=== PATIENT | male | born 1955 | race Two or more races ===

== ENCOUNTER → 2019-01-21 | Outpatient (CLI) | payer OTHER ==
--- NOTE | 2019-01-21 17:07 | KCIC ---
Examination: 2 views of the right shoulder HISTORY: History of fracture possibly lifting heavy box, fall COMPARISON: None available. FINDINGS: The humerus head is within the glenoid. Mild joint space loss identified in the glenohumeral joint, acromioclavicular joint. IMPRESSION: 1. No acute osseous findings. 2. Mild degenerative changes acromioclavicular joint, glenohumeral joint. Electronically signed by: Clyde Bustamante MD (01/21/2019 5:05 PM) [email or web address]
== END | disposition home or self-care (01) ==
LOC: KCIC 14:17
PROVIDERS: ATTEND Physician Assistant Medical
DX: S49.91XA Unspecified injury of right shoulder and upper arm, initial encounter (principal); M19.011 Primary osteoarthritis, right shoulder; W19.XXXA Unspecified fall, initial encounter; Y93.89 Activity, other specified; Y92.89 Other specified places as the place of occurrence of the external cause; Y99.8 Other external cause status
CPT/HCPCS: 73030

== ENCOUNTER → 2019-01-24 | Outpatient (CLI) | payer OTHER ==
--- NOTE | 2019-01-24 12:57 | KCIC ---
Examination: MRI of the right shoulder without contrast HISTORY: History of right shoulder pain COMPARISON: None available TECHNIQUE: Multiplanar, multisequence MR imaging of the right shoulder performed without contrast FINDINGS: The long head of the biceps tendon is not identified within the bicipital groove. There is full-thickness tear of the supraspinatus tendon with tendon retraction up to 2.7 cm medially with extension of fluid into the subacromial subdeltoid bursa. Some of the superior fibers of the subscapularis tendon may be torn. However majority of the subscapularis tendon appears intact. The infraspinatus tendon, teres minor tendon appears intact. There is moderate increased signal identified in the subscapularis, supraspinatus, infraspinatus tendon likely tendinosis. There is mild increased signal identified throughout the labrum likely degeneration. The muscle bulk grossly appears unremarkable. Mild degenerative changes acromioclavicular joint. Fat is present within the rotator interval. Moderate joint space loss identified in the glenohumeral joint, acromioclavicular joint. IMPRESSION: 1. Full-thickness tear of the anterior fibers of the supraspinatus tendon with tendon retraction. Some of the superior fibers of the subscapularis tendon may be torn. However majority of the subscapularis tendon appears intact. 2. Moderate rotator cuff tendinosis. 3. The long head of the biceps tendon is not evident within the bicipital groove. Electronically signed by: Clyde Bustamante MD (01/24/2019 12:54 PM) [id number]
== END | disposition home or self-care (01) ==
LOC: KCIC MRI 11:37
PROVIDERS: ATTEND Physician Assistant Medical
DX: M75.121 Complete rotator cuff tear or rupture of right shoulder, not specified as traumatic (principal); M19.011 Primary osteoarthritis, right shoulder
CPT/HCPCS: 73221

== ENCOUNTER → 2020-02-23 | Outpatient (CLI) | payer OTHER ==
--- NOTE | 2020-02-23 19:25 | KCIC ---
Examination: 1. Left elbow 2 views 2. Left forearm 2 views INDICATION: Left arm and elbow pain and bruising after falling 4 days ago full body weight on it FINDINGS: Left forearm shows no fracture or malalignment. There is subchondral cystic change in the distal radius and ulna with radiocarpal joint space narrowing compatible with degenerative changes. No acute soft tissue abnormality clearly demonstrated on forearm views. Left elbow however demonstrates findings suggesting an anterior fat pad sign of intra-articular joint space edema. There is suggestion of an avulsion fracture of the olecranon process enthesophyte with proximal retraction of 3.8 cm. There is overlying soft tissue edema. IMPRESSION: 1. Negative left forearm. 2. Avulsion fracture of an osteophyte at the olecranon process with probable joint effusion of the left elbow. Recommend correlation with MRI if clinically appropriate to assess triceps tendon integrity and for an otherwise occult fracture if present. Electronically signed by: Miguel Hand MD (02/23/2020 7:22 PM) [facility] [place]
== END | disposition home or self-care (01) ==
LOC: KCIC 12:59
PROVIDERS: ATTEND Internal Medicine
DX: S52.022A Displaced fracture of olecranon process without intraarticular extension of left ulna, initial encounter for closed fracture (principal); M19.032 Primary osteoarthritis, left wrist; M79.89 Other specified soft tissue disorders; W18.39XA Other fall on same level, initial encounter; Y93.89 Activity, other specified; Y92.89 Other specified places as the place of occurrence of the external cause; Y99.8 Other external cause status
CPT/HCPCS: 73070; 73090

== ENCOUNTER → 2020-03-03 | Outpatient (CLI) | payer OTHER ==
--- NOTE | 2020-03-03 16:24 | KCIC ---
EXAM: MRI LEFT ELBOW DATE: 03/03/2020 2:45 PM CLINICAL INDICATION: ELBOW FOR AVULSION FRACTURE AND JOINT EFFUSION. / Spl. Instructions: Pain and brusing about the upper and lower right arm. COMPARISON: 02/23/2020 TECHNIQUE: Multiplanar, multisequence MR imaging of the elbow was performed without IV contrast. FINDINGS: Left renal bursal fluid collection measures 4.3 x 0.6 cm. No elbow joint effusion. There is an avulsion fracture at the posterior olecranon with avulsion of the triceps tendon. Full-thickness, near full width tear of the common tendon attachment of the triceps tendon with retraction approximately 3.2 cm. Moderate associated soft tissue edema is seen. Anterior band of the medial collateral ligament is intact. Ulnar lateral collateral and lateral collateral ligaments intact. Epicondylar attachments for common extensor tendon and flexor pronator group within normal limits. Negative findings of tendinopathy, tendinitis or tear. Biceps tendon and brachialis tendons are intact with normal signal and morphology. No significant bicipitoradial bursal fluid. Forearm muscles groups are grossly normal in signal and morphology without fatty atrophy. Ulnar nerve is grossly intact although surrounded by edema from the dorsal elbow injury. Chondral thinning with subchondral edema and cystic change at the radial head. No fracture or osteonecrosis. IMPRESSION: 1. Full-thickness, subtotal width tear of the triceps tendon with retraction approximately 3.2 cm. 2. Marked associated soft tissue swelling and associated olecranon bursal collection. 3. Degenerative changes of the radiohumeral joint with subchondral edema and chondral thinning/fissuring radial head. Electronically signed by: Jalen Parikh MD (03/03/2020 4:21 PM) [id number]
== END ==
LOC: KCIC MRI 14:38
PROVIDERS: ATTEND Internal Medicine
DX: S46.312A Strain of muscle, fascia and tendon of triceps, left arm, initial encounter (principal); S50.12XA Contusion of left forearm, initial encounter; T14.8XXA Other injury of unspecified body region, initial encounter; M19.022 Primary osteoarthritis, left elbow; M77.9 Enthesopathy, unspecified; M25.422 Effusion, left elbow; X58.XXXA Exposure to other specified factors, initial encounter; Y93.89 Activity, other specified; Y92.89 Other specified places as the place of occurrence of the external cause; Y99.8 Other external cause status; M79.89 Other specified soft tissue disorders
CPT/HCPCS: 73221

== ENCOUNTER → 2020-10-11 | Outpatient (CLI) | payer OTHER ==
--- NOTE | 2020-10-11 13:11 | KCIC ---
L-spine 3 views INDICATION: Low back pain radiating down bilateral legs COMPARISON: No relevant comparisons currently available. TECHNIQUE: AP, lateral and coned-down lateral views of the lumbar spine were obtained in the upright position. FINDINGS: There are 5 lumbar type vertebrae. There is grade 1 anterolisthesis of L5 on S1 of approximately 6 mm. The lumbar spine is straightened in the lateral projection and shows rightward convexity scoliotic cu rvature, apex at L1-L2, in the AP projection. Minimal rightward lateral listhesis of L3 on L4 is also evident. The bones show preserved vertebral body heights but endplate sclerosis is present most conspicuously at L2-L3 and at L4-L5. No acute fracture is evident. No aggressive osseous lesions are seen. There is facet hypertrophic change throughout the lumbar spine, most conspicuously at L3-L4 through L 5-S1. Disc space narrowing is also present, most conspicuously on the left at L2-L3, L3-L4 and L4-L5. The listhesis at L5-S1 likely contributes to moderate to severe central canal stenosis, likely better evaluated with cross-sectional imaging (MRI or CT lumbar myelography). At least mild multilevel fora chante stenosis is also evident. The visualized sacroiliac joints and hips are unremarkable. The soft tissues show aortic calcificatio n. IMPRESSION: Multilevel lumbar spinal degenerative spondylosis with grade 1 anterolisthesis at L5-S1 that likely r esults in at least moderate central canal stenosis at the lumbosacral junction, better evaluated with cross-sectional technique as clinically warranted. Electronically signed by: Miguel Hand MD (10/11/2020 1:09 PM) [id number]
== END ==
LOC: KCIC 10:13
PROVIDERS: ATTEND Family Medicine
DX: M47.817 Spondylosis without myelopathy or radiculopathy, lumbosacral region (principal); M43.17 Spondylolisthesis, lumbosacral region
CPT/HCPCS: 72100

== ENCOUNTER → 2020-10-27 | Outpatient (CLI) | payer OTHER ==
--- NOTE | 2020-10-27 15:24 | KCIC ---
EXAMINATION: Magnetic resonance imaging (MRI) of the lumbar spine without contrast 10/27/2020 12:45 PM HISTORY: Right lower back pain and numbness for 3 months TECHNIQUE: Multiplanar multi-weighted MRI of the lumbar spine was performed without intravenous contr ast using the standard lumbar spine protocol. Contrast information: None administered. COMPARISON: None available. FINDINGS: There is 2 mm retrolisthesis of L2 on L3, 4 mm retrolisthesis of L3 on L4 and 2 mm retrolisthesis of L4 on L5 and L5 on S1. Conus medullaris terminates at L1. Distal spinal cord signal intensity is norm al in all sequences. There is moderate disc height loss at L2-3. Mild to L4 and L4-L5 with endplate i rregularity and Modic type I endplate changes, most significant at L3-L4 and L4-L5. There is congenit al narrowing of the spinal canal secondary to shortened pedicles. Epidural lipomatosis is identified at L4-L5 and L5-S1. There is moderate anterior marginal osteophytosis. Abdominal aorta is normal in c ourse and caliber. Visualized portions of the sacrum appear intact. No acute fracture is identified. L2-L3: There is a circumferential disc bulge with left lateral disc osteophyte complex. There is mild to moderate facet arthropathy. Moderate right and moderate to severe left neuroforaminal stenosis. I s left lateral recess stenosis. Mild spinal canal stenosis. L3-L4: There is a circumferential disc bulge with central disc extrusion. There is moderate right and mild left facet arthropathy. There is a right foraminal disc protrusion. Severe right and moderate l eft neural foraminal stenosis. Moderate to severe spinal canal stenosis, exacerbated by epidural lipo matosis. L4-L5: There is a large circumferential disc bulge with central disc protrusion. There is moderate fa cet arthropathy ligamentum flavum infolding. Bilateral lateral recess stenosis. Severe spinal canal s tenosis, exacerbated by epidural lipomatosis. L5-S1: There is a circumferential disc bulge. Mild to moderate facet arthropathy. Moderate bilateral neuroforaminal stenosis. Mild spinal canal stenosis, exacerbated by epidural lipomatosis. IMPRESSION: Moderate to advanced degenerative changes of lumbar spine, as described in detail above. Electronically signed by: Aury Guevara MD (10/27/2020 3:21 PM) [id number]
== END ==
LOC: KCIC MRI 12:31
PROVIDERS: ATTEND Family Medicine
DX: M47.817 Spondylosis without myelopathy or radiculopathy, lumbosacral region (principal); M43.17 Spondylolisthesis, lumbosacral region; M25.78 Osteophyte, vertebrae
CPT/HCPCS: 72148

== ENCOUNTER → 2020-11-22 | Outpatient (CLI) | payer OTHER ==
[~2020-11-22] MED LIST: ATOR20TA58 PO; DICL75TA PO; FISH400C4 PO; GABA300C18 PO; IOHEXOL 180 MG/ML 10 ML VIAL. ONE; LISI1TAB20 PO; MULT-245 PO; TURM500C4 PO; VIT59LIQ SL; [UNRECOGNIZED DRUG - CODE]; methylPREDNISolone ACETATE 40 MG/ML VIAL. ONE; methylPREDNISolone ACETATE 80 MG/ML VIAL. ONE
--- NOTE | 2020-11-22 13:05 | PDOC1 ---
INITIAL PAIN CONSULT DATE OF SERVICE: DOS: DATE: 11/22/20 TIME: 12:59 CHIEF COMPLAINT: Chief Complaint: Low back and right lower extremity pain HISTORY OF PRESENT ILLNESS: 65-year-old male presents with history of pain low back right lower extremity for about 6 months now patient reports no specific injury or accident that he is aware of is been getting worse with time standing walking changing positions exa cerbate the pain described in the low back rating right right lower extremity posterior gluteus posterior lateral thigh anterior thigh anteromedial thigh and medial calf patient reports is worse with walking standing sitting for prolonged periods driving in his truck getting in and out of the truck and standing still for prolonged periods greater than 10 to 15 minutes. Patient reports it is constant and stabbing in the back shooting in the right lower extremity with intermittent intensity with numbness and tingling in the leg as well as radiating to the right leg burning as well in the back and the leg patient reports no significant symptoms on the left side patient has done physical therapy in the past also is doing stretching strength exercises and is a e xercise bike and elliptical machine has been using at home which helps slightly but not significantly patient is taking gabapentin which is not sure is helping or not patient also taking [id number] Motrin which helps to a mild extent also patient rates his disability rating 0-10 10 being the worst is a 9 with family home responsibilities social activity occupation 10 with recreational activities 8 with sexual Haver 7 with self-care and several life support activities. Patient reports general is not awakening from sleep at night is not effective bowel bladder control but can affect his ability to walk is not use any assistive devices however to ambulate. Patient did have an MRI scan lumbar spine showing circumferential disc bulges with lateral disc osteophyte complexes L2-3 L3-4 and L4-5 with central disc extrusion at L3-4 with moderate right and mild left facet arthropathy right foraminal disc protrusion at L3-4 also bilateral severe canal stenosis and lateral recess stenosis at L4-5. PAST MEDICAL HISTORY: PMH: Hypertension, obesity, cigarette smoking quit 2016 PREVIOUS SURGERIES: Past Surgical Hx: Left elbow surgery, right rotator cuff repair CURRENT MEDICATIONS: Current Meds: Active Scripts Medications Dose Route/Sig Max Daily Dose Days Date Category Turmeric 500 mg Capsule (Turmeric/Turmeric Root Extract) 1 Each Capsule 1 Each PO DAILY 11/22/20 Reported B Complex Sublingual Liquid (Vit B2/Niacin/B-6/B-12/D-Panth) 59 Ml Liquid 1 Ml SL DAILY 30 11/22/20 Reported Multi Vitamin Daily (Multivitamin) 1 Each Tablet 1 Tab PO DAILY 30 11/22/20 Reported [glucosamine/msm] 1,500 DAILY 11/22/20 Reported [place] 3-6-9 Complex Softgel (Fish Oil/Borage/Flax/Om3,6,9#1) 400 Mg Capsule Unknown Dose PO DAILY 11/22/20 Reported Diclofenac Sodium 75 Mg Tablet.dr 75 Mg PO DAILY 11/22/20 Reported Lisinopril-Hctz 20-25 Mg Tab (Lisinopril/Hydrochlorothiazide) 1 Each Tablet 1 Tab PO DAILY 11/22/20 Reported Gabapentin (Gabapentin) 300 Mg Capsule 300 Mg PO TID 11/22/20 Reported Atorvastatin Calcium 20 Mg Tablet 1 Tab PO DAILY 11/22/20 Reported ALLERGIES; Allergies: Coded Allergies: No Known Drug Allergies (Unverified , 11/22/20) FAMILY HISTORY: Family Hx: Heart disease, diabetes SOCIAL HISTORY: Social Hx: Patient drinks alcohol occasionally but only rarely does not smoke quit 2017 does not use any illegal illicit or recreational drugs is lives with his spouse lives locally in [facility], 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 PHYSICAL EXAM: VS: Blood pressure is 146/82 pulse 80 respirations 18 temperature 98.5 F height is 5 feet 9 inches weight is 234 pounds PE: PHYSICAL EXAMINATION: GENERAL: The patient is awake, alert, oriented, appropriate, very pleasant demeanor HEENT: Shows normocephalic, atraumatic. Extraocular movements are intact and symmetrical. Patient wearing eyeglasses. Oral cavity: Mucous membranes moist and pink. Dentition is intact. NECK: Shows anterior throat supple without palpable lymphadenopathy noted. Swallow reflex symmetrical. CHEST: Shows normal on inspection. Breath sounds are clear bilaterally, no rales rhonchi wheezes auscultated. HEART: Shows S1, S2 clear. No murmurs auscultated. ABDOMEN: Soft, nontender, nondistended, obese. No palpable organomegaly is not ed. No rebound or guarding demonstrated. BACK: Shows spine grossly in the midline. Normal-appearing cervical lordotic curvature. There is slightly increased thoracic kyphosis, some minor flattening of the lumbar lordotic curvature. Lumbar paraspinous muscles show symmetrical on inspection, on palpation shows some moderate tenderness diffusely throughout the upper, middle and lower distribution of the paraspinous muscles bilaterally and also into the lower thoracic paraspinous musculature, firm and tender, but without specific trigger points, without radiation of pain. The patient has good rotational motion of the lumbar spine, both laterally as well as extension and flexion without significant difficulty. No tenderness over the spinous processes, sacrum or sacroiliac regions. EXTREMITIES: Lower extremities show deep tendon reflexes 2+ in the patellar and tendo calcaneus tendons. Motor exam is 4 on a scale of 5 with right dorsiflexion, extension, quadriceps and hamstring flexion and 5/5 on the left. Peripheral pulses are 1+ posterior tibial. No peripheral edema is noted bilaterally. Lower extremities are warm and dry to touch, equal in color and appearance. Straight leg raise noted to be positive on the right about 40 degrees, left side is negative. Gaenslen's and Efe's maneuvers are negative bilaterally as well. The patient is able to stand, stand on his toes without s ignificant difficulty or loss of balance walks with a slight favoring gait does appear to favor the right lower extremity mildly but not use any assistive devices to ambulate. SKIN: Shows warm and dry, good turgor. No edema. No sores, rashes or bruising throughout. IMPRESSION: Impression: 65-year-old male with approximate 6-month history increasing pain low back right lower extremity radicular fashion. MRI scan lumbar spine as noted Hypertension Obesity Plan: Options were discussed with the patient including surgeon recommended physical therapy interventional techniques. Patient like to pursue in terventional techniques. We discussed a lumbar epidural steroid injection using description as well as anatomical models described procedure. Risks were discussed including but not limited to: Bleeding, infection, possibility of epidural hematoma and subsequent neurological compromise, dural puncture, headaches, spinal cord and/or nerve damage, side effects of steroid medication, and poor results regarding pain control. Patient understands and wished to proceed. Patient return to the clinic in approximately 3 weeks for follow-up was counseled as return appointment activity level and side effects to be aware of. Procedure is lumbar epidural steroid injection under local anesthetic using sterile prep and drape at the L4-5 level using C-arm fluoroscopic guidance in both AP and lateral views medications injected is 120 mg Depo-Medrol + 10 mL preservative-free normal saline and 2 mL contrast- condition at discharge is stable patient tolerated procedure well had no complications. LUPIS OQUENDO MD Nov 22, 2020 13:05
== END | disposition home or self-care (01) ==
LOC: PNCL 11:51
PROVIDERS: ATTEND Anesthesiology
DX: M54.5 Low back pain (principal); M79.604 Pain in right leg; I10 Essential (primary) hypertension; E66.9 Obesity, unspecified; Z87.891 Personal history of nicotine dependence; Z98.890 Other specified postprocedural states; Z82.49 Family history of ischemic heart disease and other diseases of the circulatory system; Z83.3 Family history of diabetes mellitus; Z79.899 Other long term (current) drug therapy
CPT/HCPCS: 62323; J1030; J1040; Q9965

== ENCOUNTER → 2021-01-03 | Outpatient (CLI) | payer OTHER ==
--- NOTE | 2021-01-03 11:33 | PDOC4 ---
PROCEDURE Procedure Patient was consented for lumbar epidural steroid injection. Risks were dis cussed including but not limited to: Bleeding, infection, possibility of epidural hematoma and subsequent neurological compromise, dural puncture, headaches, spinal cord and/or nerve damage, side effects of steroid medication, and poor results regarding pain control. Patient understands and wished to proceed. Procedure is lumbar epidural steroid injection under local anesthetic using sterile prep and drape at the L4-5 level using C-arm fluoroscopic guidance in both AP and lateral views medications injected is 120 mg Depo-Medrol +10mL preservative-free normal saline and 2 mL contrast- condition at discharge is stable patient tolerated procedure well had no complications. LUPIS OQUENDO MD Jan 03, 2021 11:33
--- NOTE | 2021-01-03 11:33 | PDOC ---
Progress Note - Pain Clinic Date of Service: DOS: DATE: 01/03/21 TIME: 11:30 Diagnosis: Dx: Lumbar radiculopathy with lumbar degenerative disease lumbar spinal stenosis History or Present Illness: HPI: 65-year-old male returns follow-up status post lumbar epidural steroid traction x1. Patient reports he did very well for the first injection with about a 75% improvement initially now about 50% improvement but still doing better patient reports is in the low back right lower extremity beginning to become more noticeable over the past week or 2 patient reports for the first month it was doing excellent he was increasing his distance walking doing household activities work activities travel with greater ease and standing for longer periods as well. Patient reports still does not awaken from sleep at night worse with changing positions and standing mostly patient reports is a 7-8 on scale 10 is average worst and a 5 at its least is a 7 today patient reports aching and shooting tingling and stabbing in the back with radiating pain in the right lower extremity posterior gluteus lateral thigh anterior thigh medial thigh as well. Patient reports no new motor or sensory deficits no new bowel or bladder incontinence or other complaints. Physical Exam: VS: Blood pressure is 147/81 pulse 90 respirations 16 temperature 98.5 F weight is 233 pounds PE: PHYSICAL EXAMINATION: GENERAL: The patient is awake, alert, oriented, appropriate, very pleasant in demeanor. HEENT: Shows normocephalic, atraumatic. Extraocular movements are intact and symmetrical. Oral cavity: Mucous membranes moist and pink. Dentition is intact. NECK: Shows anterior throat supple without palpable lymphadenopathy noted. CHEST: Shows normal on inspection. Breath sounds are clear bilaterally, no rales or rhonchi or wheezes auscultated. HEART: Shows S1, S2 clear. No murmurs auscultated. ABDOMEN: Soft, nontender, nondistended, obese. No palpable organomegaly is noted. BACK: Shows spine grossly in the midline. Normal-appearing cervical lordotic curvature. There is slightly increased thoracic kyphosis, some minor flattening of the lumbar lordotic curvature. Lumbar paraspinous muscles show symmetrical on inspection, on palpation shows some moderate tenderness diffusely throughout the upper, middle and lower distribution of the paraspinous muscles, but without specific trigger points, without radiation of pain. The patient has good rotational motion of the lumbar spine, both laterally as well as extension and flexion without significant difficulty. EXTREMITIES: Lower extremities show deep tendon reflexes 2+ in the patellar and tendo calcaneus tendons. Motor exam is 4 on a scale of 5 with right dorsiflexion, extension, quadriceps and hamstring flexion and 5/5 on the left. Peripheral pulses are 1+ posterior tibial. No peripheral edema is noted bilaterally. Lower extremities are warm and dry to touch, equal in color and appearance. SKIN: Shows warm and dry, good turgor. No edema. No sores, rashes or bruising throughout. Procedure: Procedure: Options were discussed with the patient. Patient chart was reviewed his his current medication regimen updated current review of systems updated today as well. We will proceed with a second in the series lumbar epidural steroid injection today with fluoroscopic guidance. Risks were discussed including but not limited to: Bleeding, infection, possibility of epidural hematoma and subsequent neurological compromise, dural puncture, headaches, spinal cord and/or nerve damage, side effects of steroid medication, and poor results regarding pain control. Patient understands and wished to proceed. Patient will return to the clinic in approximately 2 weeks for follow-up, was counseled as return appointment activity level and side effects to be aware of. Medication Injected: Med Injected: Procedure is lumbar epidural steroid injection under local anesthetic using sterile prep and drape at the L4-5 level using C-arm fluoroscopic guidance in both AP and lateral views medications injected is 120 mg Depo-Medrol +10mL preservative-free normal saline and 2 mL contrast- condition at discharge is stable patient tolerated procedure well had no complications. Condition at Discharge: Condition at Discharge: Condition at discharge stable, patient tolerated the procedure well and had no complications. LUPIS OQUENDO MD Jan 03, 2021 11:33
== END | disposition home or self-care (01) ==
LOC: PNCL 10:44
PROVIDERS: ATTEND Anesthesiology
DX: M51.16 Intervertebral disc disorders with radiculopathy, lumbar region (principal); M48.061 Spinal stenosis, lumbar region without neurogenic claudication; Z79.899 Other long term (current) drug therapy
CPT/HCPCS: 62323; J1030; J1040; Q9965

== ENCOUNTER → 2021-02-18 | Outpatient (CLI) | payer OTHER ==
--- NOTE | 2021-02-18 09:19 | PDOC ---
Progress Note - Pain Clinic Date of Service: DOS: DATE: 02/18/21 TIME: 09:15 Diagnosis: Dx: Lumbar radiculopathy with lumbar degenerative disease and lumbar spinal stenosis History or Present Illness: HPI: 65-year-old male returns for follow-up status post lumbar epidural steroid x1. Patient reports about 90% improvement for the past 6 weeks and the pain began to return over the past week or so in the low back the right lower extremity posterior gluteus posterior lateral thigh lateral anterior thigh anteromedial thigh medial lower leg with walking and standing patient reports otherwise he been doing very well after the injection doing much greater walking distances, doing household activities work activities travel with greater ease and comfort, sleeping better at night as well. Patient reports the pain began to return over the past week or so rates as a 7 on scale 10 is worse over the past week 7 on average 3 displeasing is a 7 today patient scribes as aching and tingling in the right leg burning as well in the back and right hip. Patient reports no new motor or sensory deficits no bowel or bladder incontinence. Patient reports he has been supplementing new medication of Tylenol arthritis strength at night which does help him sleep if he can remember to take it as it does help him with activities and walking. Physical Exam: VS: Blood pressure is 132/79 pulse 73 respirations 18 temperature 98.6 F height is 5 foot 9 inches weight is 232 pounds PE: PHYSICAL EXAMINATION: GENERAL: The patient is awake, alert, oriented, appropriate, very pleasant in demeanor. HEENT: Shows normocephalic, atraumatic. Extraocular movements are intact and symmetrical. Oral cavity: Mucous membranes moist and pink. NECK: Shows anterior throat supple without palpable lymphadenopathy noted. Swallow reflex symmetrical. CHEST: Shows normal on inspection. Breath sounds are clear bilaterally. HEART: Shows S1, S2 clear. No murmurs auscultated. ABDOMEN: Soft, nontender, nondistended, obese. BACK: Shows spine grossly in the midline. Normal-appearing cervical lordotic curvature. There is slightly increased thoracic kyphosis, some minor flattening of the lumbar lordotic curvature. Lumbar paraspinous muscles show symmetrical on inspection, on palpation shows some moderate tenderness diffusely throughout the upper, middle and lower distribution of the paraspinous muscles, but without specific trigger points, without radiation of pain. The patient has good rotational motion of the lumbar spine, both laterally as well as extension and flexion without significant difficulty. EXTREMITIES: Lower extremities show deep tendon reflexes 2+ in the patellar and tendo calcaneus tendons. Motor exam is 4 on a scale of 5 with right dorsiflexion, extension, quadriceps and hamstring flexion and 5/5 on the left. Peripheral pulses are 1+ posterior tibial. No peripheral edema is noted bilat erally. Lower extremities are warm and dry to touch, equal in color and appearance. SKIN: Shows warm and dry, good turgor. No edema. No sores, rashes or bruising throughout. Procedure: Procedure: Options were discussed with the patient. Patient's old chart was reviewed his current medication regimen updated current review of systems updated today as well. We will proceed with a second in the series lumbar epidural steroid injection stable fluoroscopic guidance risks were discussed including but not limited to: Bleeding, infection, possibility of epidural hematoma and subsequent neurological compromise, dural puncture, headaches, spinal cord and/or nerve damage, side effects of steroid medication, and poor results regarding pain control. Patient understands and wished to proceed. Patient return to the clinic in approximate 2 weeks for follow-up, was counseled as return appointment activity level and side effects to be aware of. Medication Injected: Med Injected: Procedure is lumbar epidural steroid injection under local anesthetic using sterile prep and drape at the L4-5 level using C-arm fluoroscopic guidance in both AP and lateral views medications injected is 120 mg Depo-Medrol +10mL preservative-free normal saline and 2 mL contrast- condition at discharge is stable patient tolerated procedure well had no complications. Condition at Discharge: Condition at Discharge: Condition at discharge stable, patient tolerated the procedure well and had no complications. LUPIS OQUENDO MD Feb 18, 2021 09:19
--- NOTE | 2021-02-18 09:19 | PDOC4 ---
Procedure Note: ICD 10 Code: ICD 10 Code: M 54.16 M 48.07 M 51.36 Procedure Note: Patient was consented for lumbar epidural steroid injection. Risks were discussed including but not limited to: Bleeding, infection, possibility of epidural hematoma and subsequent neurological compromise, dural puncture, headaches, spinal cord and/or nerve damage, side effects of steroid medication, and poor results regarding pain control. Patient understands and wished to proceed. Procedure is lumbar epidural steroid injection under local anesthetic using sterile prep and drape at the L4-5 level using C-arm fluoroscopic guidance in both AP and lateral views medications injected is 120 mg Depo-Medrol +10mL pre servative-free normal saline and 2 mL contrast- condition at discharge is stable patient tolerated procedure well had no complications. LUPIS OQUENDO MD Feb 18, 2021 09:19
== END | disposition home or self-care (01) ==
LOC: PNCL 08:37
PROVIDERS: ATTEND Anesthesiology
DX: M51.16 Intervertebral disc disorders with radiculopathy, lumbar region (principal); M48.061 Spinal stenosis, lumbar region without neurogenic claudication; Z79.899 Other long term (current) drug therapy
CPT/HCPCS: 62323; J1030; J1040; Q9965

== ENCOUNTER → 2021-03-21 | Outpatient (CLI) | payer OTHER ==
[~2021-03-21] MED LIST changes: -IOHEXOL 180 MG/ML 10 ML VIAL. ONE; -methylPREDNISolone ACETATE 40 MG/ML VIAL. ONE; -methylPREDNISolone ACETATE 80 MG/ML VIAL. ONE
--- NOTE | 2021-03-21 09:26 | PDOC ---
Progress Note - Pain Clinic Date of Service: DOS: DATE: 03/21/21 TIME: : Diagnosis: Dx: Lumbar radiculopathy with lumbar degenerative disc disease and lumbar spinal stenosis Lumbar and lumbosacral spondylosis History or Present Illness: HPI: 65-year-old male returns status post lumbar epidural steroid injection with very good results and resolution of right radicular pain but significant pain in the low back is a new finding just on the right side worse with bending stretching extension repetitive bending and lifting also sitting for prolonged. Patient reports is better with laying down generally does not awaken from sleep at night but is much worse with walking standing bending stooping especially getting up from seated position or sitting from a standing position patient ports tingling burning aching sharp in the right side itself patient reports is 8 on scale 10 is worse over the past week 8 on average 5 its least is a 5 today patient reports that while he is doing much better after the last epidural injection was of February 18, 2021 the pain in the right back is much more noticeable only in the back itself. Patient reports no new motor or sensory deficits no bowel or bladder incontinence. Physical Exam: VS: Blood pressure is 136/81 pulse 87 respirations 18 temperature 98.6 F height is 5 feet 6 inches weight is 230 pounds PE: PHYSICAL EXAMINATION: GENERAL: The patient is awake, alert, oriented, appropriate, very pleasant in demeanor HEENT: Shows normocephalic, atraumatic. Extraocular movements are intact and symmetrical. Oral cavity: Mucous membranes moist and pink. Dentition is intact. NECK: Shows anterior throat supple without palpable lymphadenopathy noted. CHEST: Shows normal on inspection. Breath sounds are clear bilaterally, distant no rales rhonchi wheezes auscultated. HEART: Shows S1, S2 clear. No murmurs auscultated. ABDOMEN: Soft, nontender, nondistended, obese. No palpable organomegaly is noted. BACK: Shows spine grossly in the midline. Normal-appearing cervical lordotic curvature. There is slightly increased thoracic kyphosis, some minor of the lumbar lordotic curvature. Lumbar paraspinous muscles show symmetrical on inspection, on palpation shows some moderate tenderness diffusely throughout the upper, middle and lower distribution of the paraspinous muscles without specific trigger points, without radiation of pain. The patient has good rotational motion of the lumbar spine, both laterally as well as extension and flexion with significant tenderness with extension and axial loading lumbar spine only on the right side without radiation also with right lateral rotation past 10 degrees significant tenderness on the right side as well left lateral rotation is performed without significant occultly forward flexion 45 degrees without pain as well. No tenderness over the spinous processes, sacrum or sacroiliac regions. EXTREMITIES: Lower extremities show deep tendon reflexes 2+ in the patellar and tendo calcaneus tendons. Motor exam is 4 on a scale of 5 with right dorsiflexion, extension, quadriceps and hamstring flexion and 5/5 on the left. Peripheral pulses are 1+ posterior tibial. No peripheral edema is noted bilaterally. Lower extremities are warm and dry to touch, equal in color and appearance. SKIN: Shows warm and dry, good turgor. No edema. No sores, rashes or bruising throughout. Procedure: Procedure: Options were discussed with the patient. Patient's old chart reviewed his his current medication regimen updated current review of systems updated today as well. We will preauthorize patient for right-sided facet medial branch blocks L4-5 and L5-S1. Patient with clinical facet syndrome with significant pain in the right side with rotation especially axial loading with extension of the lumbar spine on the right. Once preauthorized, patient will return to clinic as scheduled. Also will prescribe Medrol Dosepak patient was given instructions well side effects aware with the medication. Medication Injected: Med Injected: None Condition at Discharge: Condition at Discharge: Condition at discharge stable. LUPIS OQEUNDO MD Mar 21, 2021 09:26
== END | disposition home or self-care (01) ==
LOC: PNCL 08:40
PROVIDERS: ATTEND Anesthesiology
DX: M51.16 Intervertebral disc disorders with radiculopathy, lumbar region (principal); M48.061 Spinal stenosis, lumbar region without neurogenic claudication; M47.817 Spondylosis without myelopathy or radiculopathy, lumbosacral region; Z79.899 Other long term (current) drug therapy
CPT/HCPCS: 99212; G0463

== ENCOUNTER → 2021-04-05 | Outpatient (CLI) | payer OTHER ==
[~2021-04-05] MED LIST changes: +BUPIVACAINE MPF 0.25% 10 ML VIAL. ONE; +IOHEXOL 180 MG/ML 10 ML VIAL. ONE; +methylPREDNISolone ACETATE 80 MG/ML VIAL. ONE
--- NOTE | 2021-04-05 10:18 | PDOC ---
Progress Note - Pain Clinic Date of Service: DOS: DATE: 04/05/21 TIME: 10:15 Diagnosis: Dx: Lumbar degenerative disc disease with lumbar spinal stenosis lumbar radiculopathy and lumbar and lumbosacral spondylosis History or Present Illness: HPI: 65-year-old male returns for follow-up status post epidural steroid injections with good results but only limited duration patient had developed new pain in the right low back itself with some pain in the hip but mostly just staying in the back not radiating to the lower extremity patient reports a 9 on scale 10 is worse over the past week 8 on average 7 its least is 8 today patient was aching sharp tingling burning can be constant radiate across the low back but not into the leg. Patient reports is worse with walking standing prolonged sitting getting up from seated position extension of the lumbar spine. Patient reports much better with sitting or laying down generally does not awaken him from sleep at night. Patient reports no new motor or sensory deficits no bowel or bladder incontinence. Physical Exam: VS: Blood pressure is 140/86 pulse 73 respirations 18 temperature 98.7 F height 5 feet 9 inches weight is 230 pounds PE: PHYSICAL EXAMINATION: GENERAL: The patient is awake, alert, oriented, appropriate, very pleasant in demeanor HEENT: Shows normocephalic, atraumatic. Extraocular movements are intact and symmetrical. Oral cavity: Mucous membranes moist and pink. Dentition is intact. NECK: Shows anterior throat supple without palpable lymphadenopathy noted. Swallow reflex symmetrical. CHEST: Shows normal on inspection. Breath sounds are clear bilaterally, distant no rales or rhonchi. HEART: Shows S1, S2 clear. No murmurs auscultated. ABDOMEN: Soft, nontender, nondistended, obese. No palpable organomegaly is noted. BACK: Shows spine grossly in the midline. Normal-appearing cervical lordotic curvature. There is slightly increased thoracic kyphosis, some minor flattening of the lumbar lordotic curvature. Lumbar paraspinous muscles show symmetrical on inspection, on palpation shows some moderate tenderness diffusely throughout the upper, middle and lower distribution of the paraspinous muscles without specific trigger points, without radiation of pain. The patient has good rotational motion of the lumbar spine, both laterally as well as extension and flexion with significant pain with right lateral rotation past 10 degrees as well as extension and axial loading lumbar spine greater than 10 degrees better with forward flexion and with minimal pain with left lateral rotation. No tenderness over the spinous processes, sacrum or sacroiliac regions. EXTREMITIES: Lower extremities show deep tendon reflexes 2+ in the patellar and tendo calcaneus tendons. Motor exam is 4 on a scale of 5 with right dorsiflexion, extension, quadriceps and hamstring flexion and 5/5 on the left. Peripheral pulses are 1+ posterior tibial. No peripheral edema is noted bilaterally. Lower extremities are warm and dry to touch, equal in color and ap pearance. SKIN: Shows warm and dry, good turgor. No edema. No sores, rashes or bruising throughout. Procedure: Procedure: Options were discussed with the patient. Patient chart was reviewed as his current medication regimen updated current review of systems updated today as well. We will proceed with right-sided L4-5 and L5-S1 facet medial branch block today with fluoroscopic guidance. Risks were discussed including but not limited to: Bleeding, infection, possibility of epidural hematoma and subsequent neurological compromise, dural puncture, headaches, spinal cord and/or nerve damage, side effects of steroid medication, and poor results regarding pain control. Patient understands and wished to proceed. Patient will return to the clinic in approximately 2 weeks for follow-up, was counseled as return appointment, activity level, and side effects beware of. Medication Injected: Med Injected: Under sterile prep and drape using C-arm fluoroscopic guidance AP and lateral and oblique views, right L4-5 and L5-S1 facet joint MB's injections were performed, using quinke needles with stylette's x4,, medications injected: 80 mg Depo-Medrol +2 cc 0.25% bupivacaine +1 cc contrast. Condition at discharge stable patient tolerated the procedure well and no complications. Condition at Discharge: Condition at Discharge: Condition at discharge stable, patient tolerated the procedure well and had no complications. LUPIS OQUENDO MD Apr 05, 2021 10:18
--- NOTE | 2021-04-05 10:19 | PDOC4 ---
Procedure Note: ICD 10 Code: ICD 10 Code: M4 7.816 M4 7.817 Procedure Note: Patient was consented for right-sided L4-5 and L5-S1 medial branch facet blocks with fluoroscopic guidance. Risks were discussed including but not limited to: Bleeding, infection, possibility of epidural hematoma and subsequent neurological compromise, dural puncture, headaches, spinal cord and/or nerve damage, side effects of steroid medication, and poor results regarding pain control. Patient understands and wished to proceed. Under sterile prep and drape using C-arm fluoroscopic guidance AP and lateral and oblique views, right L4-5 and L5-S1 facet joint MB's injections were performed, using quinke needles with stylette's x4,, medications injected: 80 mg Depo-Medrol +2 cc 0.25% bupivacaine +1 cc contrast. Condition at discharge stable patient tolerated the procedure well and no complications. LUPIS OQUENDO MD Apr 05, 2021 10:19
== END ==
LOC: PNCL 08:34
PROVIDERS: ATTEND Anesthesiology
DX: M51.17 Intervertebral disc disorders with radiculopathy, lumbosacral region (principal); M48.061 Spinal stenosis, lumbar region without neurogenic claudication; M47.817 Spondylosis without myelopathy or radiculopathy, lumbosacral region
CPT/HCPCS: 64493; 64494; J1040; J3490; Q9965

== ENCOUNTER → 2021-04-19 | Outpatient (CLI) | payer OTHER ==
[~2021-04-19] MED LIST changes: -BUPIVACAINE MPF 0.25% 10 ML VIAL. ONE; -IOHEXOL 180 MG/ML 10 ML VIAL. ONE; -methylPREDNISolone ACETATE 80 MG/ML VIAL. ONE
--- NOTE | 2021-04-19 09:20 | PDOC ---
Progress Note - Pain Clinic Date of Service: DOS: DATE: 04/19/21 TIME: 09:17 Diagnosis: Dx: Lumbar degenerative disease lumbar spinal stenosis lumbar and lumbosacral spondylosis History or Present Illness: HPI: 65-year-old male returns for follow-up status post right-sided L4-5 and L5-S1 facet medial branch blocks with about 85% improvement for the first week or so then the pain returned about 30% improvement overall patient reports is about 30% now pain in the right low back as it was previously with some pain in the hip as well posteriorly in the gluteus patient reports is an 8 on scale 10 is worse over the past week 8 on average 7 at its least is a 7 today patient reports after the first week the pain returned fairly quickly patient scribes aching sharp tingling burning can be constant radiating into the buttock but not into the lower extremity significantly patient reports no new motor or sensory deficits no bowel or bladder incontinence is increase his activity with greater ease and comfort initially with the first week as well as doing more walking more comfortable with household activities work activities and sleeping much better at night patient report he still sleeps fairly well generally does not awaken him from sleep most nights. Patient reports no bowel or bladder continence no motor loss. Physical Exam: VS: Blood pressure is 120/79 pulse 81 respirations 18 temperature 90.8 F height 5 feet 9 inches weight 227 pounds. PE: PHYSICAL EXAMINATION: GENERAL: The patient is awake, alert, oriented, appropriate, very pleasant in demeanor. HEENT: Shows normocephalic, atraumatic. Extraocular movements are intact and symmetrical. Oral cavity: Mucous membranes moist and pink. NECK: Shows anterior throat supple without palpable lymphadenopathy noted. Swallow reflex symmetrical. CHEST: Shows normal on inspection. Breath sounds are clear bilaterally. HEART: Shows S1, S2 clear. No murmurs auscultated. ABDOMEN: Soft, nontender, nondistended, obese. No palpable organomegaly is noted. BACK: Shows spine grossly in the midline. Normal-appearing cervical lordotic curvature. There is slightly increased thoracic kyphosis, some flattening of the lumbar lordotic curvature. Lumbar paraspinous muscles show symmetrical on inspection, on palpation shows some moderate tenderness diffusely throughout the upper, middle and lower distribution of the paraspinous muscles without specific trigger points, without radiation of pain. The patient has good rotational motion of the lumbar spine, both laterally as well as extension and flexion with significant tenderness with extension on the right side as well as right lateral rotation greater than 10 degrees left lateral rotation is performed out significant if cold as is forward flexion 45 degrees. EXTREMITIES: Lower extremities show deep tendon reflexes 2+ in the patellar and tendo calcaneus tendons. Motor exam is 4 on a scale of 5 with right dorsiflexion, extension, quadriceps and hamstring flexion and 5/5 on the left. Peripheral pulses are 1+ posterior tibial. No peripheral edema is noted bilaterally. Lower extremities are warm and dry to touch, equal in color and appearance. SKIN: Shows warm and dry, good turgor. No edema. No sores, rashes or bruising throughout. Procedure: Procedure: Options were discussed with the patient. Patient chart was reviewed as her current medication regimen updated current review of systems updated today as well. We will preauthorize patient for repeat lumbar facet medial branch blocks on the right L4-5 and L5-S1 as patient did very well with the first injections and we are considering potential radiofrequency ablation in the future if we can repeat his improvement. Patient continue with stretching strength exercises heat and cold application as well as oral analgesics and gabapentin as currently. Once approved, patient will return for right-sided L4-5 and L5-S1 medial branch facet blocks with fluoroscopic guidance. Medication Injected: Med Injected: None Condition at Discharge: Condition at Discharge: Condition at discharge is stable. LUPIS OQUENDO MD Apr 19, 2021 09:20
== END | disposition home or self-care (01) ==
LOC: PNCL 08:34
PROVIDERS: ATTEND Anesthesiology
DX: M51.16 Intervertebral disc disorders with radiculopathy, lumbar region (principal); M48.061 Spinal stenosis, lumbar region without neurogenic claudication; M47.817 Spondylosis without myelopathy or radiculopathy, lumbosacral region; Z79.899 Other long term (current) drug therapy
CPT/HCPCS: 99212; G0463

== ENCOUNTER → 2021-05-25 | Outpatient (CLI) | payer OTHER ==
[~2021-05-25] MED LIST changes: +BUPIVACAINE MPF 0.25% 10 ML VIAL. ONE; +IOHEXOL 180 MG/ML 10 ML VIAL. ONE; -LISI1TAB20 PO; +LISI1TAB39 PO; +methylPREDNISolone ACETATE 40 MG/ML VIAL. ONE; +methylPREDNISolone ACETATE 80 MG/ML VIAL. ONE
--- NOTE | 2021-05-25 10:06 | PDOC ---
Progress Note - Pain Clinic Date of Service: DOS: DATE: 05/25/21 TIME: 10:02 Diagnosis: Dx: Lumbar degenerative disease lumbar spinal stenosis and lumbar and lumbosacral spondylosis History or Present Illness: HPI: 65-year-old male returns for follow-up status post right-sided L4-5 and L5-S1 facet medial branch blocks. Patient reports did very well after the first injection about 75 to 80% improvement for the first 2 weeks or so the pain is returning in the right low back worse with extension of the lumbar spine walking standing changing positions getting up from seated position has been disturbing his sleep rarely but is much better with laying down patient reports that can awaken from occasionally from sleep. Rates pain as 8 on scale 10 is worst average and a 6 at its least is an 8 today patient what is aching and sharp tingling burning can be constant in the right to low back as well but no rad iation to the lower extremities. Patient reports no bowel or bladder incontinence and occasional pain into the right anterior thigh which is new for him but not in a radicular or reproducing manner where it just feels numb and tingling at times but not with radiation compared to the pain in the low back and any correlation. Patient reports no bowel or bladder incontinence. Physical Exam: VS: Blood pressures 156/85 pulse 79 respirations 18 temperature 98.0F height is 5 ft 9 in weight is 226 lbs. PE: PHYSICAL EXAMINATION: GENERAL: The patient is awake, alert, oriented, appropriate, very pleasant in demeanor HEENT: Shows normocephalic, atraumatic. Extraocular movements are intact and symmetrical. Oral cavity: Mucous membranes moist and pink. Dentition is intact. NECK: Shows anterior throat supple without palpable lymphadenopathy noted. Swallow reflex symmetrical. CHEST: Shows normal on inspection. Breath sounds are clear bilaterally, distant no rales or rhonchi. HEART: Shows S1, S2 clear. No murmurs auscultated. ABDOMEN: Soft, nontender, nondistended, obese. No palpable organomegaly is noted. BACK: Shows spine grossly in the midline. Normal-appearing cervical lordotic curvature. There is slightly increased thoracic kyphosis, some minor flattening of the lumbar lordotic curvature. Lumbar paraspinous muscles show symmetrical on inspection, on palpation shows some moderate tenderness diffusely throughout the upper, middle and lower distribution of the paraspinous muscles, but without specific trigger points, without radiation of pain. The patient has good rotational motion of the lumbar spine, both laterally as well as extension and flexion with significant tenderness with extension of the lumbar spine on the right side as well as right lateral rotation greater than 10 of forward flexion is performed at 45 without significant pain reported. No tenderness over the spinous processes, sacrum or sacroiliac regions. EXTREMITIES: Lower extremities show deep tendon reflexes 2+ in the patellar and tendo calcaneus tendons. Motor exam is 4 on a scale of 5 with right dorsiflexion, extension, quadriceps and hamstring flexion and 5/5 on the left. Peripheral pulses are 1+ posterior tibial. No peripheral edema is noted bilaterally. Lower extremities are warm and dry. SKIN: Shows warm and dry, good turgor. No edema. No sores, rashes or bruising throughout. Procedure: Procedure: Options were discussed with the patient. Patient chart reviewed his current medication regimen updated current review of systems updated today as well. We will proceed with right L4-5 and L5-S1 facet medial branch block today with fluoroscopic guidance. Risks were discussed including but not limited to: Bl eeding, infection, possibility of epidural hematoma and subsequent neurological compromise, dural puncture, headaches, spinal cord and/or nerve damage, side effects of steroid medication, and poor results regarding pain control. Patient understands and wished to proceed. Patient return to the clinic in approximately 2 weeks for follow-up, was counseled return appointment, activity level, and side effect to be aware of. Medication Injected: Med Injected: Under sterile prep and drape using C-arm fluoroscopic guidance AP and lateral and oblique views, right L4-5 and L5-S1 facet joint MB's injections were performed, using quinke needles with stylette's x2, medications injected: 120 mg Depo-Medrol +2cc 0.25% bupivacaine +1 cc contrast. Condition at discharge stable patient tolerated the procedure well and no complications. Condition at Discharge: Condition at Discharge: Patient discharge is stable, patient tolerated procedure well and had no comp lications. LUPIS OQUENDO MD May 25, 2021 10:06
--- NOTE | 2021-05-25 10:06 | PDOC4 ---
Procedure Note: ICD 10 Code: ICD 10 Code: M 47.816 M 47.817 Procedure Note: Patient was consented for right-sided L4-5 and L5-S1 facet medial branch blocks with fluoroscopic guidance. Risks were discussed including but not limited to: Bleeding, infection, possibility of epidural hematoma and subsequent neurological compromise, dural puncture, headaches, spinal cord and/or nerve damage, side effects of steroid medication, and poor results regarding pain control. Patient understands and wished to proceed. Under sterile prep and drape using C-arm fluoroscopic guidance AP and lateral and oblique views, right L4-5 and L5-S1 facet joint MB's injections were performed, using quinke needles with stylette's x2, medications injected: 120 mg Depo-Medrol +2cc 0.25% bupivacaine +1 cc contrast. Condition at discharge stable patient tolerated the procedure well and no complications. LUPIS OQUENDO MD May 25, 2021 10:06
== END | disposition home or self-care (01) ==
LOC: PNCL 09:12
PROVIDERS: ATTEND Anesthesiology
DX: M47.817 Spondylosis without myelopathy or radiculopathy, lumbosacral region (principal); M47.816 Spondylosis without myelopathy or radiculopathy, lumbar region; M48.061 Spinal stenosis, lumbar region without neurogenic claudication; M51.36 Other intervertebral disc degeneration, lumbar region; Z79.899 Other long term (current) drug therapy
CPT/HCPCS: 62323; 64493; 64494; J1030; J1040; J3490; Q9965

== ENCOUNTER → 2021-06-28 | Outpatient (CLI) | payer OTHER ==
[~2021-06-28] MED LIST changes: -BUPIVACAINE MPF 0.25% 10 ML VIAL. ONE
--- NOTE | 2021-06-28 14:52 | PDOC ---
Progress Note - Pain Clinic Date of Service: DOS: DATE: 06/28/21 TIME: 14:48 Diagnosis: Dx: Lumbar radiculopathy with lumbar degenerative disease lumbar and lumbosacral spondylosis History or Present Illness: HPI: 65-year-old male returns for follow-up status post right-sided L4-5 and L5-S1 facet medial branch blocks with about 80% improvement for the first 3 weeks patient reports he went on vacation and felt very good was able to perform all activities that he was looking forward to walking and standing and standing for prolonged periods try with greater ease and comfort is very pleased with his progress at that time patient reports pain returning now in the low back but now has pain in the right lower extremity radiating the posterior gluteus posterior lateral thigh lateral anterior thigh anteromedial thigh medial lower leg mostly and to the knee on the right side patient reports is an 8 on scale 10 is worse over the past week 7 on average 6 at its least and is 8 today patient was aching sharp shooting tingling burning radiating can be constant unbearable with extended standing and walking. Patient reports no loss of motor function much better with sitting or laying down generally does not awaken him from sleep at night. Patient reports now the pain is changes radiating down his right leg where his low back is still doing fairly well but does have some pain in the low back also Physical Exam: VS: Blood pressure is 148/56 pulse is 91 respirations are 18 temperature is 89.6 F height 5 feet 9 inches weight 228 pounds PE: PHYSICAL EXAMINATION: GENERAL: The patient is awake, alert, oriented, appropriate, very pleasant in demeanor HEENT: Shows normocephalic, atraumatic. Extraocular movements are intact and symmetrical. Oral cavity: Mucous membranes moist and pink. Dentition is intact. NECK: Shows anterior throat supple without palpable lymphadenopathy noted. Swallow reflex symmetrical. CHEST: Shows normal on inspection. Breath sounds are clear bilaterally, distant no rales rhonchi or wheezes auscultated. HEART: Shows S1, S2 clear. No murmurs auscultated. ABDOMEN: Soft, nontender, nondistended, obese. No palpable organomegaly is noted. BACK: Shows spine grossly in the midline. Normal-appearing cervical lordotic curvature. There is increased thoracic kyphosis, some flattening of the lumbar lordotic curvature. Lumbar paraspinous muscles show symmetrical on inspection, on palpation shows some moderate tenderness diffusely throughout the upper, middle and lower distribution of the paraspinous muscles without specific trigger points, without radiation of pain. The patient has good rotational m otion of the lumbar spine, both laterally as well as extension and flexion without significant difficulty. No tenderness over the spinous processes, sacrum or sacroiliac regions. EXTREMITIES: Lower extremities show deep tendon reflexes 2+ in the patellar and tendo calcaneus tendons. Motor exam is 4 on a scale of 5 with right dorsiflexion, extension, quadriceps and hamstring flexion and 5/5 on the left. Peripheral pulses are 1+ posterior tibial. No peripheral edema is noted bilaterally. Lower extremities are warm and dry to touch, equal in color and appearance. SKIN: Shows warm and dry, good turgor. No edema. No sores, rashes or bruising throughout. Procedure: Procedure: Options discussed with the patient. Patient chart reviews his current medication regimen updated current review of systems updated today as well. We will proceed with a lumbar epidural steroid injection today with fluoroscopic guidance. Risks were discussed including but not limited to: Bleeding, in fection, possibility of epidural hematoma and subsequent neurological compromise, dural puncture, headaches, spinal cord and/or nerve damage, side effects of steroid medication, and poor results regarding pain control. Patient understands and wished to proceed. Patient will return to clinic in approximate 2 weeks for follow-up, was counseled as return appointment, activity, and side effects to be aware of. Medication Injected: Med Injected: Procedure is lumbar epidural steroid injection under local anesthetic using sterile prep and drape at the L4-5 level using C-arm fluoroscopic guidance in both AP and lateral views medications injected is 120 mg Depo-Medrol +10mL preservative-free normal saline and 2 mL contrast- condition at discharge is stable patient tolerated procedure well had no complications. Condition at Discharge: Condition at Discharge: Condition at discharge is stable, patient tolerated the procedure well and had no complications. LUPIS OQUENDO MD Jun 28, 2021 14:52
--- NOTE | 2021-06-28 14:52 | PDOC4 ---
Procedure Note: ICD 10 Code: ICD 10 Code: M54.16 M51.36 M4 8.06 Procedure Note: Patient was consented for lumbar epidural steroid injection with fluoroscopic guidance. Risks were discussed including but not limited to: Bleeding, infection, possibility of epidural hematoma and subsequent neurological compromise, dural puncture, headaches, spinal cord and/or nerve damage, side effects of steroid medication, and poor results regarding pain control. Patient understands and wished to proceed. Procedure is lumbar epidural steroid injection under local anesthetic using henrique rile prep and drape at the L4-5 level using C-arm fluoroscopic guidance in both AP and lateral views medications injected is 120 mg Depo-Medrol +10mL preservative-free normal saline and 2 mL contrast- condition at discharge is stable patient tolerated procedure well had no complications. LUPIS OQUENDO MD Jun 28, 2021 14:52
== END | disposition home or self-care (01) ==
LOC: PNCL 14:00
PROVIDERS: ATTEND Anesthesiology
DX: M51.16 Intervertebral disc disorders with radiculopathy, lumbar region (principal); M47.27 Other spondylosis with radiculopathy, lumbosacral region; M48.061 Spinal stenosis, lumbar region without neurogenic claudication; Z79.899 Other long term (current) drug therapy; Z88.8 Allergy status to other drugs, medicaments and biological substances
CPT/HCPCS: 62323; J1030; J1040; Q9965

== ENCOUNTER → 2021-07-25 | Outpatient (CLI) | payer OTHER ==
[~2021-07-25] MED LIST changes: -methylPREDNISolone ACETATE 40 MG/ML VIAL. ONE
--- NOTE | 2021-07-25 14:08 | PDOC ---
Progress Note - Pain Clinic Date of Service: DOS: DATE: 07/25/21 TIME: 14:04 Diagnosis: Dx: Lumbar radiculopathy with lumbar degenerative disease lumbar spinal stenosis and lumbar spondylosis History or Present Illness: HPI: 65-year-old male returns status post lumbar epidural steroid injection with about 60% improvement patient reports pain is still in the low back radiating into the right lower extremity posterior gluteus posterior thigh lateral thigh anterior thigh patient reports is tingling stabbing radiating aching and sharp with walking initially doing much better distance walking doing household activities work activities travel with greater ease sitting standing and walking much improved patient reports still wakes up from sleep about every 5 hours usually change positions or get out of bed and repeat the pain patient describes pain as tingling and stabbing radiating in the leg on the right side posterior gluteus lateral thigh anterior thigh medial thigh into the medial lower leg at times patient reports is a 9 on scale 10 is worst 8-9 on average 5 its least is a 7 today patient reports no bowel or bladder incontinence no motor deficits, bu t significant fatigability with the right leg with ambulation. Physical Exam: VS: Blood pressure is 138/64 pulse 76 respirations 18 temperature 98.1 F weight is 231 pounds PE: PHYSICAL EXAMINATION: GENERAL: The patient is awake, alert, oriented, appropriate, very pleasant in demeanor HEENT: Shows normocephalic, atraumatic. Extraocular movements are intact and symmetrical. Oral cavity: Mucous membranes moist and pink. Dentition is intact. NECK: Shows anterior throat supple without palpable lymphadenopathy noted. Swallow reflex symmetrical. CHEST: Shows normal on inspection. Breath sounds are clear bilaterally, no rales or rhonchi. HEART: Shows S1, S2 clear. No murmurs auscultated. ABDOMEN: Soft, nontender, nondistended. No palpable organomegaly is noted. BACK: Shows spine grossly in the midline. Normal-appearing cervical lordotic curvature. There is increased thoracic kyphosis, some flattening of the lumbar lordotic curvature. Lumbar paraspinous muscles show symmetrical on inspection, on palpation shows some moderate tenderness diffusely throughout the upper, middle and lower distribution of the paraspinous muscles without specific trigger points, without radiation of pain. The patient has good rotational motion of the lumbar spine, both laterally as well as extension and flexion without significant difficulty. EXTREMITIES: Lower extremities show deep tendon reflexes 2+ in the patellar and tendo calcaneus tendons. Motor exam is 4 on a scale of 5 with right dorsiflexion, extension, quadriceps and hamstring flexion and 5/5 on the left. Peripheral pulses are 1+ posterior tibial. No peripheral edema is noted bilaterally. Lower extremities are warm and dry to touch, equal in color and appearance. SKIN: Shows warm and dry, good turgor. No edema. No sores, rashes or bruising throughout. Procedure: Procedure: Options discussed with patient. Patient's old chart was reviewed his current medication regimen updated current review of systems updated today as well. We will proceed with a lumbar epidural steroid injection today with fluoroscopic guidance. Risks were discussed including but not limited to: Bleeding, infection, possibility of epidural hematoma and subsequent neurological compromise, dural puncture, headaches, spinal cord and/or nerve damage, side effects of steroid medication, and poor results regarding pain control. Patient understands and wished to proceed. Patient will return to clinic in approximate 2 weeks for follow-up, was counseled return appointment, activity level, and side effect to be aware of. Medication Injected: Med Injected: Procedure is lumbar epidural steroid injection under local anesthetic using henrique rile prep and drape at the L4-5 level using C-arm fluoroscopic guidance in both AP and lateral views medications injected is 120 mg Depo-Medrol +10mL preservative-free normal saline and 2 mL contrast- condition at discharge is stable patient tolerated procedure well had no complications. Condition at Discharge: Condition at Discharge: Condition at discharge is stable, patient tolerated procedure well and had no complications. LUPIS OQUENDO MD Jul 25, 2021 14:08
--- NOTE | 2021-07-25 14:08 | PDOC4 ---
Procedure Note: ICD 10 Code: ICD 10 Code: M54.16 M51.36 M4 8.06 Procedure Note: Patient was consented for lumbar epidural steroid injection with fluoroscopic guidance. Risks were discussed including but not limited to: Bleeding, infection, possibility of epidural hematoma and subsequent neurological compromise, dural puncture, headaches, spinal cord and/or nerve damage, side effects of steroid medication, and poor results regarding pain control. Patient understands and wished to proceed. Procedure is lumbar epidural steroid injection under local anesthetic using henrique rile prep and drape at the L4-5 level using C-arm fluoroscopic guidance in both AP and lateral views medications injected is 120 mg Depo-Medrol +10mL preservative-free normal saline and 2 mL contrast- condition at discharge is stable patient tolerated procedure well had no complications. LUPIS OQUENDO MD Jul 25, 2021 14:08
== END | disposition home or self-care (01) ==
LOC: PNCL 12:58
PROVIDERS: ATTEND Anesthesiology
DX: M51.16 Intervertebral disc disorders with radiculopathy, lumbar region (principal); M47.26 Other spondylosis with radiculopathy, lumbar region; M48.061 Spinal stenosis, lumbar region without neurogenic claudication; Z79.899 Other long term (current) drug therapy
CPT/HCPCS: 62323; J1040; Q9965